=== PATIENT | male | born 1955 | race Caucasian/White ===

== ENCOUNTER 2018-02-14 05:27 | Inpatient (IN) | payer OTHER ==
[2018-02-02 13:19] LABS: URINE BILIRUBIN NEGATIVE (Negative); URINE BLOOD TRACE (Negative); URINE CLARITY CLEAR; URINE COLOR YELLOW; URINE GLUCOSE-RANDOM* NEGATIVE (Negative); URINE KETONES NEGATIVE (Negative); URINE LEUKOCYTES-REFLEX NEGATIVE (Negative); URINE NITRITE-REFLEX NEGATIVE (Negative); URINE PROTEIN (DIPSTICK) TRACE (Negative); URINE SPECIFIC GRAVITY 1.015 (1.005-1.035); URINE UROBILINOGEN 0.2 E.U./dl (0.2-1.0)
[2018-02-02 13:22] LABS: HEMATOCRIT 42.3 % (42.0-52.0); HEMOGLOBIN 14.6 gm/dL (14.0-18.0); MCH 29.1 pg (26.0-34.0); MCHC 34.5 g/dL (28.0-37.0); MCV 84.2 fL (80.0-100.0); RBC 5.02 mil/uL (4.50-6.00); RDW 13.7 % (10.5-14.5); WBC 7.6 thou/uL (4.0-11.0)
[2018-02-02 13:30] LABS: ALBUMIN 4.2 g/dL (3.4-5.0); CALCIUM 9.6 mg/dL (8.5-10.1); CREATININE 0.9 mg/dL (0.7-1.3); POTASSIUM 3.8 mmol/L (3.5-5.1)
[2018-02-02 13:33] LABS: PROTIME 10.1 Seconds (9.3-11.4)
[~2018-02-14] VITALS: Ht 190.5 cm; Wt 118.4 kg
--- NOTE | ~2018-02-14 | O ---
[facility] [address] OPERATIVE REPORT Name: NEO BASILIO Room #: 150-1 ADM IN M.R.#: [id number] Admission: 02/14/18 Attend Phys: Kevin Antunez MD Discharge: Date of : 53 Report #: [id number] THIS REPORT FOR: //name// CC: Kevin Williamson DATE OF SERVICE: 02/14/2018 PREOPERATIVE DIAGNOSIS: Degenerative arthritis, right hip. POSTOPERATIVE DIAGNOSIS: Degenerative arthritis, right hip. PROCEDURE: Right total hip arthroplasty. SURGEON: Kevin Antunez MD HISTORY: This 62-year-old fit and active gentleman has moderate degenerative arthritis in multiple joints including both hips and both knees. He is having progressive discomfort and difficulty remaining active and functional as he would like. The right hip is his current primary problem and he is anxious to go ahead with right total hip arthroplasty. DESCRIPTION OF PROCEDURE: The patient was taken to the operating room where he was placed under general anesthesia. Prophylactic intravenous antibiotics were administered. He was turned to the left lateral decubitus position. The right hip and thigh were then meticulously prepped and draped. A slightly curving posterolateral skin incision was made centered over the greater trochanter. This was carried through fascia exposing the posterior aspect of the hip joint. The short external rotators and capsule were taken down and preserved and tagged with several #1 Tevdek sutures. The hip was dislocated and marked degenerative change on both the femoral head and acetabulum was noted. The Branch and Nephew hip system was utilized. A femoral neck osteotomy was performed and the canal was prepared with reamers and hand broaches. The Branch and Nephew Synergy femoral component, size 16 seemed to fit most appropriately. The calcar was trimmed down to an appropriate level. The trial component was then removed and attention directed to the acetabulum. Satisfactory exposure was established and the acetabulum was sequentially reamed, gradually advancing to a 56 mm reamer. The Branch and Nephew 3-hole hemispherical StikTite shell was then inserted, positioning this in alignment with his true acetabulum, which placed this in about 20 degrees of anteversion and about 45 degrees off of vertical. The cup was impacted into position and seated nicely and appeared to be very secure. In addition, 3 cancellous screws were placed through the apex of the shell engaging good periacetabular bone and securing the shell nicely. Once this was seated securely, a liner was placed using a 40 mm inside diameter liner with a 20-degree elevated rim. The elevated rim was placed at about the 9 o'clock posterior position. The liner seated nicely and appeared to be secure. A trial [address] [address] OPERATIVE REPORT Name: NEO BASILIO Room #: 150-1 [facility] IN M.R.#: [id number] Admission: 02/14/18 Attend Phys: Kevin Antunez MD Discharge: Date of : 53 Report #: [id number] reduction was performed with a trial femoral broach in place and the hip seemed to be nicely aligned with good yazidi of leg length and stability when using a +4 mm neck length. The trial stem was removed and the permanent Branch and Nephew Synergy femoral component, size 16 was then inserted. This was placed in about 20 degrees of anteversion. The component seated very nicely and appeared to be secure. A +4 mm neck length was selected and a titanium modular sleeve and the 40 mm head were selected. These were impacted onto the Sr taper and seated nicely and appeared to be secure. The Oxinium head was selected, given his relatively young age and active lifestyle. Once this component was impacted into position, the hip was once again reduced. Alignment, range of motion, stability and leg length were assessed and felt to be quite satisfactory. The entire wound was copiously irrigated. Good hemostasis was established. A single Hemovac was left in the wound exiting through a separate stab incision. The capsule and short external rotators were repaired back to bone using the #1 Tevdek sutures passed through drill holes in the greater trochanter. The fascia was then closed with multiple #1 Vicryl sutures. The subcutaneous tissues were closed with 0 Monocryl. The skin was closed with skin grisel. A sterile dressing was applied. The patient was then awakened and returned to recovery room in good condition. <ELECTRONICALLY SIGNED> By: Kevin Antunez MD 02/14/18 1021 [id number] Kevin Antunez MD /nt
[~2018-02-14 05:27] MED LIST: ADVIL200 M3 PO; AMLODIPINE-BEN1 EAC5 PO; ASPIR 8181 MG PO; CENTRUM SILVER1 EAC2 PO; CYCLOBENZAPRINE10 MG PO; FLOMAX0.4 MG PO; LIPITOR10 MG PO; OXYCODONE HCL 55 MG PO
[2018-02-14 06:50] VITALS: BP 119/82
[2018-02-14 16:00] VITALS: BP 130/69
[2018-02-14 16:09] VITALS: BP 142/67
[2018-02-14 19:55] VITALS: BP 126/60
[2018-02-15 00:20] VITALS: BP 129/64
[2018-02-15 03:31] VITALS: BP 127/63
[2018-02-15 06:18] LABS: HEMATOCRIT 35.9 % (42.0-52.0); HEMOGLOBIN 12.3 gm/dL (14.0-18.0); MCHC 34.3 g/dL (28.0-37.0); MCV 84.7 fL (80.0-100.0); RBC 4.24 mil/uL (4.50-6.00); RDW 13.4 % (10.5-14.5); WBC 11.2 thou/uL (4.0-11.0)
[2018-02-15 07:40] VITALS: BP 140/60
[2018-02-15 15:15] VITALS: BP 118/62
[2018-02-15 20:00] VITALS: BP 125/59
[2018-02-16 04:40] VITALS: BP 124/65
[2018-02-16 06:22] LABS: HEMATOCRIT 31.9 % (42.0-52.0); HEMOGLOBIN 11.6 gm/dL (14.0-18.0); MCH 30.6 pg (26.0-34.0); MCHC 36.3 g/dL (28.0-37.0); MCV 84.3 fL (80.0-100.0); RBC 3.78 mil/uL (4.50-6.00); RDW 13.1 % (10.5-14.5); WBC 11.6 thou/uL (4.0-11.0)
[2018-02-16 07:30] VITALS: BP 116/63
[2018-02-16 15:28] VITALS: BP 116/63
[2018-02-16] MEDS ORDERED: PERCOCET 10-321 EACH PO (16:05)
[2018-02-16] MEDS ORDERED: XARELTO10 MG PO (16:05)
[2018-02-16 23:27] VITALS: BP 130/61
[2018-02-17 07:30] VITALS: BP 119/69
[2018-02-17 10:04] LABS: HEMATOCRIT 30.7 % (42.0-52.0); HEMOGLOBIN 10.8 gm/dL (14.0-18.0); MCH 29.9 pg (26.0-34.0); MCHC 35.2 g/dL (28.0-37.0); MCV 84.9 fL (80.0-100.0); RBC 3.62 mil/uL (4.50-6.00); RDW 13.3 % (10.5-14.5); WBC 8.9 thou/uL (4.0-11.0)
[2018-02-17 22:41] VITALS: BP 128/68
[2018-02-18 07:38] VITALS: BP 122/69
== END 2018-02-18 18:45 | disposition home health service (06) | DRG 470 ==
LOC: TBA 05:27 → 4E 05:27 → PRE 05:41 → 4E 10:56 → PRE 11:13 → SICU 02-16 19:49 → ENTRNSPT 02-18 18:00 → SICU 02-18 18:45
PROVIDERS: Orthopaedic Surgery
PROC: 0SR906Z Replacement of Right Hip Joint with Oxidized Zirconium on Polyethylene Synthetic Substitute, Open Approach (ICD-10-PCS; principal; 2018-02-14)
DX: M16.11 Unilateral primary osteoarthritis, right hip (principal); I10 Essential (primary) hypertension; E78.5 Hyperlipidemia, unspecified; Z79.899 Other long term (current) drug therapy
CPT/HCPCS: 10783; 15002; 50010; 50101; 50382; 50414; 51412; 51771; 53000; 53368; 56521; 56525; 56527; 57103; 62110; 62900; 70005

== ENCOUNTER → 2020-03-14 | Outpatient (CLI) | payer OTHER ==
[~2020-03-14] MED LIST changes: +ADVIL200 M1 PO; +ALEVE220 MG PO; +LO-DOSE ASPIRIN81 M1 PO; +PERCOCET 10-321 EACH PO; +XARELTO10 MG PO
== END ==
LOC: LAB 08:30
PROVIDERS: ATTEND Student in an Organized Health Care Education/Training Program
DX: Z01.812 Encounter for preprocedural laboratory examination (principal); Z11.59 Encounter for screening for other viral diseases

== ENCOUNTER 2020-03-18 07:10 | Inpatient (IN) | payer OTHER ==
[2020-03-11 11:39] LABS: HEMATOCRIT 44.6 % (42.0-52.0); HEMOGLOBIN 15.5 gm/dL (14.0-18.0); MCH 29.8 pg (26.0-34.0); MCHC 34.7 g/dL (28.0-37.0); MCV 85.9 fL (80.0-100.0); RBC 5.2 mil/uL (4.50-6.00); RDW 13.8 % (10.5-14.5)
[2020-03-11 11:41] LABS: URINE BILIRUBIN NEGATIVE (Negative); URINE BLOOD TRACE (Negative); URINE CLARITY CLEAR; URINE COLOR YELLOW; URINE GLUCOSE-RANDOM* NEGATIVE (Negative); URINE KETONES NEGATIVE (Negative); URINE LEUKOCYTES-REFLEX NEGATIVE (Negative); URINE NITRITE-REFLEX NEGATIVE (Negative); URINE PROTEIN (DIPSTICK) NEGATIVE (Negative); URINE SPECIFIC GRAVITY 1.015 (1.005-1.035); URINE UROBILINOGEN 0.2 E.U./dl (0.2-1.0)
[2020-03-11 12:06] LABS: ALBUMIN 4.1 g/dL (3.4-5.0); CALCIUM 9.2 mg/dL (8.5-10.1); CREATININE 0.8 mg/dL (0.7-1.3); POTASSIUM 4.2 mmol/L (3.5-5.1)
[2020-03-11 12:42] LABS: PROTIME 10.3 Seconds (9.3-11.4)
[~2020-03-18] VITALS: Ht 190.5 cm; Wt 112.5 kg
--- NOTE | ~2020-03-18 | D ---
[facility] [place] [address] DISCHARGE SUMMARY Name: NEO BASILIO Room #: 433-I ADM IN M.R.#: [id number] Admission: 03/18/20 Attend Phys: Kevin Antunez MD Discharge: Date of : 53 Report #: [id number] THIS REPORT FOR: cc: Fran Williamson MD, Logan F. MD Clymer, David J. MD ~ THIS REPORT FOR: //name// CC: Kevin Williamson DATE OF SERVICE: 03/20/2020 FINAL DIAGNOSIS: End-stage degenerative arthritis, left hip. OPERATION PROCEDURES: Left total hip arthroplasty. HISTORY OF PRESENT ILLNESS: This fit and generally active 64-year-old gentleman has rather severe degenerative arthritis involving both hips. He had a very successful right hip replacement 2 years ago. He returns now for left total hip replacement. HOSPITAL COURSE: The patient was admitted and taken to the operating room on 03/18. He underwent left total hip replacement, which he tolerated quite nicely. Postoperatively, his course has been largely unremarkable. He was able to rapidly advance to regular diet and moved from IV analgesics to oral analgesics. His IV was discontinued. He was started on physical therapy and made excellent progress. He had 1 episode of rather minor hematuria, which was evaluated and no problems were identified. His hemoglobin remained stable. His vital signs are stable. He is doing nicely on his therapy program and with oral pain medication. He and his feel he is comfortable and stable and ready for discharge home today. He has been cleared by physical therapy. DISCHARGE MEDICATIONS: Include Flomax ____ mg daily, hydrocodone 10 mg q.6 hours p.r.n. for pain and Xarelto 10 mg daily. He will continue gentle activity and exercise at home. He will return to the office in 1 week for followup and again in 2 weeks for suture removal. By: [id number] Kevin Antunez MD /nt
[2020-03-18 09:33] VITALS: BP 132/59
[2020-03-18 17:17] VITALS: BP 127/55
[2020-03-18 19:35] VITALS: BP 110/69
[2020-03-19 02:50] VITALS: BP 122/60
[2020-03-19 03:30] VITALS: BP 112/63
[2020-03-19 05:40] LABS: HEMATOCRIT 34.7 % (42.0-52.0); MCH 29.9 pg (26.0-34.0); MCHC 34.7 g/dL (28.0-37.0); MCV 86.2 fL (80.0-100.0); RBC 4.03 mil/uL (4.50-6.00); RDW 13.4 % (10.5-14.5); WBC 14.4 thou/uL (4.0-11.0)
[2020-03-19 07:00] VITALS: BP 135/73
[2020-03-19 08:19] LABS: ALBUMIN 3.2 g/dL (3.4-5.0); CALCIUM 8.4 mg/dL (8.5-10.1); CREATININE 0.7 mg/dL (0.7-1.3); MAGNESIUM 1.9 mg/dL (1.8-2.4); POTASSIUM 4.5 mmol/L (3.5-5.1); TOTAL BILIRUBIN 0.3 mg/dL (0.2-1.0); TOTAL PROTEIN 6.1 g/dL (6.4-8.2)
--- NOTE | 2020-03-19 08:26 | O ---
[facility] [place] [address] OPERATIVE REPORT Name: NEO BASILIO Room #: 433-I ADM IN M.R.#: [id number] Admission: 03/18/20 Attend Phys: Kevin Antunez MD Discharge: Date of : 53 Report #: [id number] THIS REPORT FOR: cc: Fran Williamson MD, Logan F. MD Clymer, David J. MD ~ CC: Kevin Williamson DATE OF SERVICE: 03/18/2020 PREOPERATIVE DIAGNOSIS: End-stage degenerative arthritis, left hip. POSTOPERATIVE DIAGNOSIS: End-stage degenerative arthritis, left hip. PROCEDURE: Left total hip arthroplasty. SURGEON: Kevin Antunez MD INDICATIONS: This 64-year-old gentleman has progressive degenerative arthritis involving both hips. He underwent right total hip replacement about 2 years ago with good result. He returns now for left total hip replacement. DESCRIPTION OF PROCEDURE: The patient was taken to the operating room where he was placed under general anesthesia. Prophylactic intravenous antibiotics were administered. He was turned to the right lateral decubitus position. The left hip, thigh and leg were meticulously prepped and draped. A slightly curving posterolateral skin incision was made and centered over the greater trochanter. This was carried through subcutaneous tissues and fascia. The gluteus was spread bluntly exposing the posterior aspect of the hip joint. The short external rotators and capsule were taken down and preserved and tagged with several #2 Tevdek sutures. The hip was dislocated posteriorly with moderately severe degenerative change on both the femoral head and acetabulum were noted. A femoral neck osteotomy was performed. The Branch and Nephew hip system was utilized. The femoral canal was opened with reamers and hand broaches. A size 16 Synergy stem trial seemed to fit nicely. The calcar neck region was trimmed down to an appropriate level. The trial broach was removed and attention directed to the acetabulum. Exposure was somewhat difficult given his large size and muscular build. Adequate exposure was established and the acetabulum was then sequentially reamed, gradually advancing to a 56 mm reamer. A Branch and Nephew size 56, 3-hole hemispherical StikTite shell was then inserted. This was placed in alignment with his true acetabulum, which positioned this in about 45 degrees off of vertical and about 20 degrees of anteversion. It was impacted into place and seated nicely. Three cancellous screws were placed through the apical holes each engaging good periacetabular bone and adding to stability. A 40-mm polyethylene insert liner was then positioned with the 20-degree elevated [place] [id number] OPERATIVE REPORT Name: NEO BASILIO Room #: 433-I [facility] IN .R.#: [id number] Admission: 03/18/20 Attend Phys: Kevin Antunez MD Discharge: Date of : 53 Report #: [id number] rim at about the 10 o'clock posterior position. It seated nicely and appeared to be secure. A trial reduction was performed and the hip seemed nicely suited for a size 16 Synergy femoral stem with a +0 neck length. The trial broach was removed and the permanent Branch and Nephew Synergy size 16 stem was then inserted, positioning this in about 15 degrees of anteversion. It seated nicely and appeared to be secure. A 40 mm Oxinium head with a +0 neck length sleeve was then inserted. This was tapped on to the Sr taper and the hip was reduced. Alignment, range of motion, stability and leg length were once again assessed and felt to be satisfactory. The short external rotators and capsule were then repaired back to bone using the #2 Tevdek sutures, passed through small drill holes in the greater trochanter. This also added nicely to hip stability. A single Hemovac was left in the wound exiting through a separate stab incision. The fascia was closed with multiple #1 Vicryl sutures. The adipose and subcutaneous tissues were closed with 0 Monocryl. Skin was closed with skin grisel. A sterile dressing was applied. The patient was then awakened and returned to recovery room in good condition. <ELECTRONICALLY SIGNED> By: Kevin Antunez MD 03/19/20 0826 [id number] Kevin Antunez MD /nt
[2020-03-19 19:30] VITALS: BP 123/82
[2020-03-19 21:44] LABS: URINE BILIRUBIN NEGATIVE (Negative); URINE BLOOD 3+ (Negative); URINE CLARITY CLEAR; URINE COLOR YELLOW; URINE GLUCOSE-RANDOM* NEGATIVE (Negative); URINE KETONES NEGATIVE (Negative); URINE LEUKOCYTES-REFLEX NEGATIVE (Negative); URINE NITRITE-REFLEX NEGATIVE (Negative); URINE PROTEIN (DIPSTICK) NEGATIVE (Negative); URINE UROBILINOGEN 0.2 E.U./dl (0.2-1.0)
[2020-03-19 21:58] LABS: BACTERIA-REFLEX None Seen /HPF (None Seen); CASTS None Seen /LPF (None Seen); CRYSTALS None Seen /LPF (None Seen); SQUAMOUS 0-3 Few /LPF (0-3); URINE RBC >20 Many /HPF (0-2); URINE WBC-REFLEX None Seen /HPF (0-5)
[2020-03-20 04:30] VITALS: BP 118/69
[2020-03-20 06:09] LABS: ABSOLUTE NEUTROPHILS 8.2 thou/uL (1.4-8.2); BASOPHILS 0.4 % (0.0-2.0); EOSINOPHILS 0.6 % (0.0-3.0); HEMATOCRIT 36.3 % (42.0-52.0); HEMOGLOBIN 12.2 gm/dL (14.0-18.0); LYMPHOCYTES 19.8 % (24.0-44.0); MCH 29.5 pg (26.0-34.0); MCHC 33.7 g/dL (28.0-37.0); MCV 87.5 fL (80.0-100.0); MONOCYTES 9.4 % (1.0-8.0); PLATELET COUNT 172 thou/uL (150-400); POLYS 69.8 % (36.0-66.0); RBC 4.15 mil/uL (4.50-6.00); RDW 13.4 % (10.5-14.5); WBC 11.8 thou/uL (4.0-11.0)
[2020-03-20 06:22] LABS: CALCIUM 8.4 mg/dL (8.5-10.1); CREATININE 0.7 mg/dL (0.7-1.3); POTASSIUM 3.9 mmol/L (3.5-5.1)
[2020-03-20] MEDS ORDERED: NORCO 10-325 T1 EACH PO (13:29)
[2020-03-20] MEDS ORDERED: XARELTO10 MG PO (13:30)
[2020-03-20 13:54] VITALS: BP 118/69
== END 2020-03-20 16:21 | disposition home or self-care (01) | DRG 470 ==
LOC: 4S 07:10 → TBA 07:10 → PRE 09:19 → 4S 13:55 → PRE 15:24 → 4S 03-20 16:21
PROVIDERS: Internal Medicine; ADMIT Orthopaedic Surgery; ATTEND Orthopaedic Surgery
PROC: 0SRB06Z Replacement of Left Hip Joint with Oxidized Zirconium on Polyethylene Synthetic Substitute, Open Approach (ICD-10-PCS; principal; 2020-03-18)
DX: M16.12 Unilateral primary osteoarthritis, left hip (principal); N39.0 Urinary tract infection, site not specified; R65.10 Systemic inflammatory response syndrome (SIRS) of non-infectious origin without acute organ dysfunction; N40.1 Benign prostatic hyperplasia with lower urinary tract symptoms; E78.5 Hyperlipidemia, unspecified; R33.8 Other retention of urine; R31.9 Hematuria, unspecified
CPT/HCPCS: 10102; 50010; 50101; 50382; 50414; 51412; 53000; 53368; 56521; 56525; 56530; 57095; 57103; 62110; 62900; 70005